=== PATIENT | female | born 1960 | race Caucasian/White ===

== ENCOUNTER → 2017-06-15 | Outpatient (CLI) | payer SELFPAY ==
[~2017-06-15] MED LIST: PYRIDIUM 100MG100 MG PO; SEPTRA DS 8001 TAB PO; VITAMINS
== END ==
LOC: COL.RAD 10:03
DX: S83.241A Other tear of medial meniscus, current injury, right knee, initial encounter (principal); R60.0 Localized edema

== ENCOUNTER → 2020-04-04 | Outpatient (CLI) | payer OTHER | LOC: COL.RAD 12:42 | DX: M25.552 Pain in left hip (principal) | CPT/HCPCS: J3301; Q9967 ==

== ENCOUNTER → 2020-11-04 | Outpatient (CLI) | payer OTHER ==
[2020-11-04 14:54] LABS: HEMATOCRIT 39.2 % (37.0-47.0); HEMOGLOBIN 13.2 g/dl (12.5-16.0); MEAN CELL VOLUME 97 fl (80.0-100.0); MEAN CORPUSCULAR HEMOGLOBIN 33 pg (27.0-31.0); MEAN CORPUSCULAR HGB CONC 34 g/dl (33.0-37.0); MEAN PLATELET VOLUME 9.5 fl (7.4-10.4); PLATELET COUNT 356 K/mm3 (130-400); RED BLOOD COUNT 4.06 M/mm3 (4.10-5.30); REDCELL DISTRIBUTION WIDTH-CV 12.6 % (11.5-14.5)
[2020-11-04 15:07] LABS: CALCIUM 9.4 mg/dL (8.4-10.2); CREATININE, serum 0.92 mg/dL (0.57-1.11); POTASSIUM 3.7 mmol/L (3.5-4.5)
== END ==
LOC: COL.LAB 14:28
PROVIDERS: Internal Medicine Cardiovascular Disease
DX: Z01.89 Encounter for other specified special examinations (principal)

== ENCOUNTER → 2020-11-05 | Outpatient (CLI) | payer OTHER | LOC: COL.CARD 07:25 | DX: Z01.810 Encounter for preprocedural cardiovascular examination (principal) ==